=== PATIENT | male | born 1950 | race Caucasian/White ===

== ENCOUNTER → 2016-12-13 | Outpatient (CLI) | payer OTHER ==
[2016-12-13 12:47] LABS: BASOPHILS # (AUTO) 0.13 10*3/UL; BASOPHILS % (AUTO) 1.6 % (0-1); EOSINOPHILS # (AUTO) 0.11 10*3/UL; EOSINOPHILS % (AUTO) 1.3 % (0-8); HEMATOCRIT 51.4 % (42.0-52.0); HEMOGLOBIN 17.1 g/dL (14.0-18.0); LYMPHOCYTES # (AUTO) 2.29 10*3/uL; MEAN CORPUSCULAR HEMOGLOBIN 31.7 PG (27-31); MEAN CORPUSCULAR HGB CONC 33.3 g/dL (33-37); MEAN CORPUSCULAR VOLUME 95.4 FL (80-90); MEAN PLATELET VOLUME 10.4 FL (7.4-12.2); MONOCYTES % (AUTO) 9.8 % (5-15); NEUTROPHILS # (AUTO) 4.82 10*3/UL; NEUTROPHILS % (AUTO) 58.8 % (50-80); RED BLOOD COUNT 5.39 10^6/uL (4.70-6.10)
[2016-12-13 12:51] LABS: PLATELET MORPHOLOGY COMMENT NORMAL MORPHOLOGY (NORM); RBC MORPHOLOGY COMMENT NORMAL MORPHOLOGY (NORM); WBC MORPHOLOGY COMMENT NORMAL MORPHOLOGY (NORM)
[2016-12-13 13:29] LABS: CHOL/HDL RATIO 7.18 RATIO (0-4.0); LDL CHOLESTEROL,CALCULATED 161.4 mg/dL
[2016-12-13 13:29] LABS: BLOOD UREA NITROGEN 27 mg/dL (7-22); BUN/CREATININE RATIO 24.54 (6-20); CALCIUM 10.4 mg/dL (8.7-10.7); EST GLOMERULAR FILTRATION > 60 (>60 ml/min/1.73m(2)); SERUM ALBUMIN 4.6 g/dL (3.5-4.8)
== END ==
LOC: LAB 12:12
PROVIDERS: ATTEND Nurse Practitioner Family
DX: E03.9 Hypothyroidism, unspecified (principal); E78.5 Hyperlipidemia, unspecified; I10 Essential (primary) hypertension; Z72.0 Tobacco use
CPT/HCPCS: 36415; 80053; 80061; 84443; 85025

== ENCOUNTER → 2017-01-28 | Outpatient (CLI) | payer OTHER ==
[2017-01-28 08:49] LABS: BLOOD UREA NITROGEN 32 mg/dL (7-22); BUN/CREATININE RATIO 26.66 (6-20); CALCIUM 9.8 mg/dL (8.7-10.7); CHOL/HDL RATIO 3.58 RATIO (0-4.0); EST GLOMERULAR FILTRATION > 60 (>60 ml/min/1.73m(2)); HDL CHOLESTEROL 36 mg/dL (40-150); SERUM ALBUMIN 4.5 g/dL (3.5-4.8); SERUM CHOLESTEROL 129 mg/dL (120-200)
== END ==
LOC: LAB 07:50
PROVIDERS: ATTEND Nurse Practitioner Family
DX: E78.5 Hyperlipidemia, unspecified (principal); I10 Essential (primary) hypertension; F17.200 Nicotine dependence, unspecified, uncomplicated
CPT/HCPCS: 80053; 80061